=== PATIENT | female | born 1965 ===

== ENCOUNTER 2017-02-14 14:57 | Outpatient (CLI) | payer BC ==
--- NOTE | 2017-02-14 16:16 | Mammography Report ---
RIGHT DIGITAL DIAGNOSTIC MAMMOGRAM and RIGHT BREAST ULTRASOUND: 02/14/17 14:57:00 CLINICAL: Recalled for asymmetries. COMPARISON:01/23/17 screening FINDINGS: ML and spot compression MLO and CC views were performed. 2 right inner asymmetries persist with spot compression. The smaller measures 6 mm and is only well seen on the CC spot. Ultrasound of the right breast was performed from 12 to 6 o'clock and demonstrated a lymph node at 4 o'clock 11 cm is from the nipple. This correlates with the larger asymmetry. No mass or cyst to correlate with the smaller asymmetry. IMPRESSION: A probably benign 6 mm asymmetry with a negative ultrasound. BI-RADS CATEGORY: 3 - - Probably Benign RECOMMENDATION: Six month followup right mammogram and ultrasound. ACR BI-RADS MAMMOGRAPHIC CODES: 0 = Needs additional imaging evaluation; 1 = Negative; 2 = Benign; 3 = Probably benign; 4 = Suspicious; 5 = Malignant; 6 = Known biopsy-proven malignancy COMMENT: 1. Dense breast tissue, i.e., adenosis, fibrocystic changes, etc., may obscure an underlying neoplasm. 2. Approximately 10% of cancers are not detected with mammography. 3. A negative mammography report should not delay biopsy if a clinically suspicious mass is present. COMMENT: Patient follow-up letters are generated via our [employer] application.
== END 2017-02-14 14:58 | disposition home or self-care (01) ==
LOC: SPVWC 14:57
PROVIDERS: ATTEND Family Medicine
DX: R92.8 Other abnormal and inconclusive findings on diagnostic imaging of breast (principal)
CPT/HCPCS: 76642; G0206

== ENCOUNTER 2018-02-21 15:09 | Outpatient (CLI) | payer BC ==
--- NOTE | 2018-02-24 08:09 | Mammography Report ---
BONE DEXA:02/21/18 15:09:00 CLINICAL: Long-term use of hormonal contraceptive. No comparison. TECHNIQUE: Two site bone DEXA performed on an Hologic scanner. FINDINGS: The average BMD of the lumbar spine L1-L4 is 0.978g/cm squared with a T-score of -1.6 and a Z-score of by 0.5. The average BMD of the left hip is 0.946g/cm squared with a T-score of -0.5 and a Z-score of -0.1. The left femoral neck BMD is 0.701g/cm squared T score of -1.8 and a Z score of -1.1 IMPRESSION: WHO classification: Osteopenia with increased fracture risk based on spine and left femoral neck measurements. RECOMMENDATION: Clinical correlation and routine screening. DEFINITIONS: BMD = Bone Mineral Density T-score = BMD related to mean peak bone mass of young adult (mean expressed in Standard Deviation) Z-score = Age matched BMD expressed in SD World Health Organization (WHO) Diagnostic Criteria Normal T-score > -1 SD Osteopenia T-score between -1 and -2.4 SD Osteoporosis T-score -2.5 SD or below NOTE: BMD is not the only risk factor for fracture. One should also consider factors such as the patient's age, risk of falling, previous osteoporotic fracture, family history of osteoporotic fractures, current smoker, and low body weight. Z-scores are not calculated if >80 years of age.
--- NOTE | 2018-02-24 12:00 | Mammography Report ---
BILATERAL DIGITAL SCREENING MAMMOGRAM with CAD: 02/21/18 15:09:00 CLINICAL: Routine screening. COMPARISON:02/14/17 FINDINGS: There are scattered areas of fibroglandular density.Stable right asymmetries in a stable circumscribed left inner mass with calcifications.. No new mass, architectural distortion or suspicious calcifications. IMPRESSION: No mammographic evidence of malignancy. BI-RADS CATEGORY: 2 -- Benign RECOMMENDATION: Routine mammographic screening in one year. COMMENT: Patient follow-up letters are generated by our [employer] application.
== END 2018-02-21 15:10 | disposition home or self-care (01) ==
LOC: SPVWC 15:09
PROVIDERS: ATTEND Family Medicine
DX: Z12.31 Encounter for screening mammogram for malignant neoplasm of breast (principal); M85.88 Other specified disorders of bone density and structure, other site; Z79.3 Long term (current) use of hormonal contraceptives
CPT/HCPCS: 77067; 77080

== ENCOUNTER 2022-07-18 15:29 | Outpatient (CLI) | payer OTHER | END 2022-07-18 15:30 | disposition home or self-care (01) | LOC: SPVWC 15:29 | PROVIDERS: ATTEND Family Medicine | DX: Z12.31 Encounter for screening mammogram for malignant neoplasm of breast (principal) | CPT/HCPCS: 77067 ==